=== PATIENT | female | born 1960 | race Caucasian/White ===

== ENCOUNTER → 2018-03-06 05:39 | Day surgery (SDC) | payer OTHER ==
--- NOTE | 2018-02-22 07:23 | HP ---
PREOPERATIVE HISTORY AND PHYSICAL: DATE OF ADMISSION/SURGERY: 03/06/18 DATE OF OFFICE VISIT: 02/21/18 ATTENDING SURGEON: Dr. Monica Jiang.* (DICTATED BY DIONE GARCIA) PROCEDURE: Left hip arthroscopic labral repair and osteoplasty. CHIEF COMPLAINT: Left hip pain. HISTORY OF PRESENT ILLNESS: Siri is a 57-year-old female, who presents to the clinic for left hip pain due to a labral tear and femoral acetabular impingement. She has failed conservative measures and therefore agreed to undergo a left hip arthroscopic labral repair and osteoplasty. She has even failed an intraarticular injection. PAST MEDICAL HISTORY: Asthma, peptic ulcer disease, hypothyroidism, depression , alcohol addiction, but she is sober for 33 years, breast cancer in remission. PAST SURGICAL HISTORY: Carpal tunnel release bilaterally, appendectomy, left wrist arthroscopy, bilateral meniscectomies with implants for cancer. The patient denies prior complications with anesthesia. MEDICATIONS: 1. Prednisone 20 mg 1 by mouth 3 times daily. 2. Wellbutrin 150 mg 1 by mouth every morning. 3. Levothyroxine 125 mcg 1 by mouth every day. 4. Bupropion 75 mg 1 by mouth daily. 5. Montelukast 10 mg 1 by mouth daily. 6. Zyrtec Allergy 10 mg 1 by mouth daily. 7. Aspirin 81 mg 1 by mouth every day. 8. Cod liver oil 1250 mg - 130 per unit 1 by mouth daily. 9. Vitamin B12 500 mcg 1 by mouth every day. ALLERGIES: ERYTHROMYCIN, SULFA ANTIBIOTICS, and CODEINE. FAMILY HISTORY: Positive for cancer in mom with history of 2 DVTs starting when she was 82 years old after breast surgery and thyroid surgery, but the patient states she was very inactive. Otherwise, no family history of DVT or PE. SOCIAL HISTORY: She lives with her spouse. She works as an RN. She denies tobacco or alcohol use. She exercises occasionally. She is right-hand dominant. REVIEW OF SYSTEMS: A 14-point review of systems was reviewed with the patient. Positive for current complaint, otherwise negative. Denies fever, chills, chest pain, shortness of breath, history of bleeding disorder, personal history of DVT or PE. PHYSICAL EXAMINATION GENERAL: A 57-year-old well-developed, well-nourished female, in no acute distress. VITAL SIGNS: Height 63.5, weight 112, blood pressure 124/70, respiratory rate 18, BMI 19.5. HEENT: Normocephalic, atraumatic. PERRLA. Throat clear. NECK: Supple. PULMONARY: Lungs are clear to auscultation bilaterally. No wheezing, rhonchi, or rales. CARDIO: Regular rate and rhythm. S1, S2. No murmurs, gallops, or rubs. No edema. ABDOMEN: Positive bowel sounds. Soft, nontender. NEURO: Alert and oriented x3. Cranial nerves grossly intact. Sensation intact to light touch. MUSCULOSKELETAL: Left lower extremity: Skin is intact. No warmth or erythema. No pain with log roll. Pain with passive abduction. Positive FADER, positive RAMOS. Pain with deep flexion. Calves soft, nontender. +5/5 strength to ankle dorsiflexion and plantar flexion. +2 DP pulse. Sensation intact to light touch distally. DIAGNOSTIC STUDIES: MR arthrogram of the left hip revealed mild osteoarthritic changes, but with well preserved joint space, cam deformity and femoral impingement with the labral tear. IMPRESSION: Left hip labral tear. PLAN: The patient is scheduled to undergo a left hip arthroscopic labral repair and osteoplasty with Dr. Jiang on 03/06/18. She will be 50% weightbearing for the first 2 weeks postoperatively. She will begin physical therapy the day after surgery. She was given a protocol and the PT script today. She is unable to take any narcotics because she cannot tolerate any codeine derivative, therefore, over- the-counter Tylenol , Flexeril, and naproxen will be used for postop pain management. She would like someone to remind her as she is waking that she had hip surgery which is why her hip hurts and she is also unable to tolerate an O2 mask while waking up. She will follow up with Dr. Jiang in 10 to 14 days for postoperative followup and suture removal. DIONE GARCIA [id number]/[facility] #: [id number] [facility] HOSPITALArsenio
[~2018-03-06 05:39] MED LIST: Acetaminophen IV 1GM/100ML * 1,000 MG/100 ML VIAL IVPB ONE; Acetaminophen IV 1GM/100ML * 100 ML ONE; Buffered Lidocaine 0.9% SYRIN* 5 ML/SYR SYRINGE INTRADERM ONE; Dexamethasone IV* 4 MG/ML 1 ML (4 MG) IV SLOW PU ONE; Dexamethasone IV* 4 MG/ML 1 ML (4 MG) ONE; DiMENhydriNATE IV* 50 MG/ML VIAL IV PUSH PRN; EPHEDrine (Pressors)* 50 MG/ML VIAL ONE; Famotidine IV* 10 MG/ML 2 ML (20 mg) IV ONE; Famotidine IV* 10 MG/ML 2 ML (20 mg) ONE; Glycopyrrolate IV* 0.2 MG/ML 1 ML VIAL ONE; Ketorolac INJ* 30 MG/ML 1 ML VIAL ONE; Lactated Ringers 1000 ML Bag* 1,000 ML IV SCH; Lidocaine 2% PF * 5 ML VIAL ONE; Midazolam* 1 MG/ML 5 ML VIAL (5 MG) ONE; Morphine VIAL* 4 MG/ML VIAL (1 ml vial) IV PRN; Naloxone* 0.4 MG/ML 1 ML VIAL IV PRN; Neostigmine Methylsulfate* 2 MG/2 ML SYRINGE ONE; Ondansetron INJ* 2 MG/ML VIAL ONE; Phenylephrine INJ* 10 MG/ML 1 ML VIAL (10 MG) ONE; Propofol* 10 MG/ML 20 ML BTL ONE; Rocuronium* 10 MG/ML VIAL ONE; Ropivacaine* 2 MG/ML 20 ML VIAL (0.2%) ONE; ceFAZolin 2 GM PREMIX in ORs 2 GM/50 ML BAG IVPB ONE; fentaNYL* 50 MCG/ML 2 ML VIAL (100 MCG VIAL) ONE
[2018-03-06] MEDS: fentaNYL* 50 MCG/ML 2 ML VIAL (100 MCG VIAL) IV PRN ×2 (09:50→10:31)
[2018-03-06 11:23] VITALS: BP 114/76
--- NOTE | 2018-03-06 15:33 | OP ---
CC: PCP, Valeri Correa MD * DATE OF OPERATION: 03/06/18 - [facility] DATE OF : 64 SURGEON: Monica Jiang MD CASH REGISTER REPAIRER: DINOE Gustafson. An periodontal assistant was needed for the entirety of the case to help with positioning and retraction, and was utilized throughout all portions of the case. ANESTHESIOLOGIST: Dr. Prabhakar. ANESTHESIA: General anesthesia. PRE-OP DIAGNOSIS: Left hip labral repair with mixed cam impingement morphology. POST-OP DIAGNOSIS: Left hip labral repair with mixed cam impingement morphology. OPERATIVE PROCEDURE: Left hip arthroscopy with: 1. Labral debridement. 2. Pincer osteoplasty. 3. Cam osteoplasty. COMPLICATIONS: None. ESTIMATED BLOOD LOSS: Minimal. IMPLANTS USED: None. TRACTION TIME: 36 minutes. INDICATIONS: Siri Briggs is a 57-year-old female with persistent hip pain who failed refractory conservative management. She has minimal arthritis and a labral tear with mixed cam and pincer morphology. She has failed conservative management and has elected to proceed with surgical treatment. Risks and benefits were discussed at length included but not limited to bleeding, infection, damage to nerves, vessels, surrounding structures, wound nonhealing, persistent pain, need for surgery, scarring, stiffness, incomplete relief of symptoms, and risk of anesthesia. OPERATIVE FINDINGS: The traction provided good access to the femoroacetabular joint. There were grade 0 to 1 changes of the acetabulum. The humeral head had minimal changes, grade 0 to 1 changes. The labrum was torn. There was a positive wave sign. The labrum was bulbous and not able to hold the sutures and therefore, was debrided back. DESCRIPTION OF PROCEDURE: The patient was greeted in the preoperative area by the attending surgeon. Correct extremity was marked and consent was confirmed. The patient was brought back to the operating suite, where she was placed in supine position on the operating table. She then underwent general anesthesia endotracheal intubation after which she was appropriately positioned on the [employer] hip traction bed. Well-padded boots were then placed on bilateral lower extremities. The right leg was placed in the leg aragon. The operative extremity was in the [employer] dynamic leg aragon. The traction was placed on the non- operative leg first to balance the pelvis. The operative leg was placed with gentle flexion, internal rotation, and neutral adduction. Traction was then pulled and gross traction was then pulled. After a miniature surgical pause indicating side, site, procedure, and administration of antibiotics, under fluoroscopic guidance, gross traction was applied to the operative extremity. Under sterile condition, an 18-gauge needle was used to break the acetabular seal. Once this was done, the traction was released and the leg was then finally prepped with ChloraPrep. Initial prep was prepped and draped with chlorhexidine soap, scrub and alcohol wipe and final prep with ChloraPrep. After appropriate surgical pause indicating side, site, procedure, and administration of antibiotics, the traction was then brought back up and confirmed under fluoroscopic guidance. The lateral anterior peritrochanteric portal was made first with an 18-gauge needle. First, an 18-gauge needle was used to localize the starting point. Then an incision was made and the scope was advanced through cannulas to try to facilitate atraumatic access and try to avoid the labrum. Once the lateral portal was placed, a low anterolateral portal was then placed. Total traction time was 36 minutes. First the anterolateral peritrochanteric portal was accessed using a spinal needle, which was confirmed under fluoroscopy. Then the portal was made using 11 blade. Cannulae were then introduced to the joint atraumatically. The mid anterior portal was then made in a similar fashion. Once the cannulae were placed, 70- degree scope was then used to confirm that the portals did not violate the labrum. Her labrum was subluxing into the joint. The pump was set to 40 mmHg for constant stable pressure throughout the entirety of the case. At this point , the [place] blade was used to make a capsulotomy beginning in the mid anterior portal. It was then connected laterally. At this point, the labrum was identified and mobilized. Between the 10 o'clock to 2 o'clock position, it was very abnormal, bulbous and displaced into the joint. Decision was made that this was not repairable. This was then debrided back using the shaver. Once this was debrided back with care to preserve whatever was normal, synovectomy was then done. Electrocautery was used to maintain hemostasis. The capsular reflection was then released and carefully visualized as well to expose the AIIS. A 5 mm myriam was then used to do rim trimming to debride the pincer deformity and remove cross-over sign. This was confirmed with x-ray guidance. Once this was complete, final images were obtained. The remainder of the cartilage on the chondral surface of the acetabulum had grade 0 to 1 changes except for at the periphery where the labrum was torn and had a small unstable flap that was debrided back. At this point, all loose debris was removed and the traction was released. The traction was released for a total time of 36 minutes. Once this was confirmed under direct arthroscopic as well as fluoroscopic visualization, the head and neck were visualized. A capsulotomy was T'd to allow for exposure of the cam lesion. Preoperative templating was used as a guide for the femoral neck osteoplasty. There was a [id number] cam lesion. The 5-mm myriam was then used to do a cam resection which began superiorly to laterally, then inferiorly to medially. This was done using the C-arm to help make sure elimination of as much the femoral-sided impingement as possible. Femoral head and neck angle were normalized. The bone quality was quite poor at certain parts and care was taken not to take too much bone or to cause fracture. Meticulous hemostasis was obtained. The hip was taken through range of motion to make sure the entire lesion was removed beginning with internal rotation, neutral external rotation as well as flexion to make sure that the resection was removed. Post resection dynamic testing was done under visualization. At this point, meticulous hemostasis was obtained. Fluid was evacuated from the joint after a spinal needle was placed under arthroscopic visualization. Injectable Toradol and saline were placed into the joint. The wounds were copiously irrigated with sterile saline. The incisions were closed in layers with 2-0 Vicryl and 3-0 nylon. Portals were injected with 0.25% Marcaine plain. Sterile dressings were applied as well as Cryo/Cuff and CHRISS stocking. She was awoken from anesthesia and transferred to the PACU in stable condition. POSTOPERATIVE PLAN: She will be partial weightbearing for 2 weeks. No hip flexion past 90 degrees. CHRISS stocking for 2 weeks. She will be discharged on pain medication, tramadol as well as naproxen 500 mg p.o. b.i.d. for 30 days and Flexeril. DVT prophylaxis considered but deferred due to no previous personal or family history. I will see the patient back in 10 to 14 days and repeat x-rays including a Fontanez and lateral of the hip. [id number]/[facility] #: [id number] NELLI
== END | disposition home or self-care (01) ==
LOC: OR 05:39
PROVIDERS: ATTEND Orthopaedic Surgery
DX: M25.852 Other specified joint disorders, left hip (principal); J45.909 Unspecified asthma, uncomplicated; E03.9 Hypothyroidism, unspecified; F41.8 Other specified anxiety disorders; Z85.3 Personal history of malignant neoplasm of breast
CPT/HCPCS: 76000; J0690; J1100; J1885; J2250; J2405; J2704; J2795; J3010